=== PATIENT | male | born 1955 | race Caucasian/White ===

== ENCOUNTER 2023-05-15 20:06 | Emergency (ER) | payer MEDICARE, SELFPAY ==
[2023-05-15 20:07] VITALS: BP 163/99; PULSE 113; RESP 25; TEMP 36.6; O2SAT 97; BMI 30.2
--- NOTE | 2023-05-15 20:22 | CT_ITS ---
STUDY: CT ABDOMEN AND PELVIS WITH CONTRAST REASON FOR EXAM: Male, 67 years old. ruq pain RADIATION DOSAGE (If Supplied By Facility): CTDIvol = ( 16.88 ) mGy, DLP = ( 1122.84 ) mGycm TECHNIQUE: Transaxial images were obtained from the dome of the diaphragm to the symphysis pubis without oral contrast. IV 100mL Isovue-300 was administered. Sagittal and coronal images were reconstructed. Individualized dose optimization techniques were used for this CT. COMPARISON: None. FINDINGS: The visualized lung bases are unremarkable. The visualized portions of the heart are within normal limits. Normal liver. Normal gallbladder and extrahepatic biliary system. Normal spleen. Normal pancreas. Normal bilateral adrenal glands. Normal right kidney. Normal left kidney. There is a small hiatal hernia. Normal small intestine. There are multiple colonic diverticula consistent with diverticulosis. The appendix is visualized and appears normal. Normal abdominal aorta. Normal inferior vena cava. Normal retroperitoneum. Normal urinary bladder. There is a small umbilical hernia containing fat. Small bilateral inguinal hernias containing the right side of the bladder on the right and fat on the left. There is marked enlargement of the superior aspect of the right rectus abdominis muscle containing a 5 x 10 cm area of soft tissue attenuation consistent with an acute rectus muscle hematoma. Mild levoscoliosis of the lumbar spine with degenerative disc disease. CT/Abdomen/Pelvis W IV Cont ONLY IMPRESSION: 1. Large rectus abdominis muscle hematoma. 2. Small hiatal hernia. 3. Sigmoid diverticulosis without diverticulitis. 4. Small umbilical and bilateral inguinal hernias with incarceration of the right side of the bladder. Electronically Signed: Jak Sinclair MD at 22:05 EST ,
--- NOTE | 2023-05-15 20:24 | EDS_ITS ---
HPI <BOWEN Castelan - Last Filed: 05/15/23 20:54> History of Present Illness Chief Complaint: Abd Pain Narrative Narrative: 67-year-old male states about an hour ago he was lying on the couch when he felt a pop in the right upper quadrant of his abdomen and noticed a golf ball sized mass. The area has increased in size and he is having worsening pain. He states he did not sneeze or cough or do anything that increased the pressure in his abdomen to his knowledge. His Labrador jumped on the right side of his abdomen a couple days ago and it felt sore. He has been eating and drinking normally. Normal bladder and bowel movements. He has no known medical history but has not seen a doctor in 20 years. No abdominal surgeries. PFSH <BOWEN Castelan Last Filed: 05/15/23 20:54> PFSH Home Medications NK 05/15/23 [History Last Taken Unknown] Allergy/AdvReac Type Severity Reaction Status Date / Time amoxicillin Allergy Mild Rash Verified 05/15/23 20:09 Social History Smoking Status: Never smoker ROS <BOWEN Castelan Last Filed: 05/15/23 20:54> ROS ED ROS Narrative Constitutional: Negative for fever, chills, malaise. CVS: Negative for chest pain, syncope. Respiratory: Negative for shortness of breath, cough. GI: Positive for abdominal pain. Negative for nausea, vomiting, diarrhea, constipation, melena, hematochezia. : Negative for dysuria, hematuria or frequency. EXAM <BOWEN Castelan Last Filed: 05/15/23 20:54> Physical Exam Narrative Exam Narrative: CONST: Patient sitting in no acute distress. EYES: Normal inspection. NECK: Normal inspection. RESP: No respiratory distress, CTAB. CVS: Regular rate and rhythm, no murmur, no gallop. ABD: Right upper quadrant is firm and tender, no guarding or rebound, nondistended. No bruising or skin changes. SKIN: Color normal, no rash, warm, dry, intact. EXTREMITIES: Normal appearance, no pedal edema. NEURO: Oriented x4. PSYCH: Normal affect. Const Vital Signs: 05/15/23 20:07 05/15/23 22:26 Temperature 98 F Temperature Source Temporal Pulse Rate 113 H 82 Respiratory Rate 25 H 16 Blood Pressure 163/99 H 128/79 H Blood Pressure Mean 120 95 Pulse Ox 97 98 Oxygen Delivery Method Room Air Room Air <Dr. Bhupendra Moralez MD - Last Filed: 05/15/23 22:50> Physical Exam Const Vital Signs: 05/15/23 20:07 05/15/23 22:26 Temperature 98 F Temperature Source Temporal Pulse Rate 113 H 82 Respiratory Rate 25 H 16 Blood Pressure 163/99 H 128/79 H Blood Pressure Mean 120 95 Pulse Ox 97 98 Oxygen Delivery Method Room Air Room Air MDM <BOWEN Castelan - Last Filed: 05/15/23 20:54> MDM MDM Narrative Medical decision making narrative: History from: Patient and daughter Patient felt a pop developed pain and swelling in the right upper quadrant of his abdomen. The area feels firm but I cannot necessarily feel a hernia. He has no peritoneal signs. The rest from his abdomen is soft and nontender. Differential includes hernia versus hematoma. He was treated with IV morphine and Zofran and labs ordered. CBC is within normal limits. CMP shows glucose of 160 with normal CO2 and anion gap. CT scan is pending. Lab Data Attestation: I reviewed the patient's lab results. Labs: Laboratory Results - last 24 hr 05/15/23 20:29 WBC 10.2 RBC 4.77 Hgb 15.0 Hct 42.4 MCV 88.9 MCH 31.4 MCHC 35.4 RDW Std Deviation 38.0 RDW Coeff of Elvi 11.9 Plt Count 291 MPV 9.7 Immature Gran % (Auto) 0.600 Neut % (Auto) 65.5 Lymph % (Auto) 21.6 [place] % (Auto) 9.6 Eos % (Auto) 2.1 Baso % (Auto) 0.6 Absolute Neuts (auto) 6.7 Absolute Lymphs (auto) 2.21 Nucleated RBC % 0 Sodium 139 Potassium 4.2 Chloride 108 H Carbon Dioxide 24.0 Anion Gap 7 BUN 15 Creatinine 1.11 Estim Creat Clear Calc 67.59 Est GFR (MDRD) Af Amer 85 Est GFR (MDRD) Non-Af 70 BUN/Creatinine Ratio 13.5 Glucose 160 H Calcium 9.2 Total Bilirubin 0.30 AST 26 ALT 65 H Alkaline Phosphatase 82 Total Protein 6.8 Albumin 3.3 Globulin 3.5 Albumin/Globulin Ratio 0.9 Radiography Diagnostic Testing: Clinical Impression(s) from Imaging Studies Abdomen/Pelvis CT 05/15/23 20:22 IMPRESSION: 1. Large rectus abdominis muscle hematoma. 2. Small hiatal hernia. 3. Sigmoid diverticulosis without diverticulitis. 4. Small umbilical and bilateral inguinal hernias with incarceration of the right side of the bladder. Electronically Signed: Jak Sinclair MD at 22:05 EST Reading Location ID and State: [id number] / [employer] , Service support , <Dr. Bhupendra Moralez MD - Last Filed: 05/15/23 22:50> [facility] Lab Data Labs: Laboratory Results - last 24 hr 05/15/23 20:29 WBC 10.2 RBC 4.77 Hgb 15.0 Hct 42.4 MCV 88.9 MCH 31.4 MCHC 35.4 RDW Std Deviation 38.0 RDW Coeff of Elvi 11.9 Plt Count 291 MPV 9.7 Immature Gran % (Auto) 0.600 Neut % (Auto) 65.5 Lymph % (Auto) 21.6 [place] % (Auto) 9.6 Eos % (Auto) 2.1 Baso % (Auto) 0.6 Absolute Neuts (auto) 6.7 Absolute Lymphs (auto) 2.21 Nucleated RBC % 0 Sodium 139 Potassium 4.2 Chloride 108 H Carbon Dioxide 24.0 Anion Gap 7 BUN 15 Creatinine 1.11 Estim Creat Clear Calc 67.59 Est GFR (MDRD) Af Amer 85 Est GFR (MDRD) Non-Af 70 BUN/Creatinine Ratio 13.5 Glucose 160 H Calcium 9.2 Total Bilirubin 0.30 AST 26 ALT 65 H Alkaline Phosphatase 82 Total Protein 6.8 Albumin 3.3 Globulin 3.5 Albumin/Globulin Ratio 0.9 Radiography Diagnostic Testing: Clinical Impression(s) from Imaging Studies Abdomen/Pelvis CT 05/15/23 20:22 IMPRESSION: 1. Large rectus abdominis muscle hematoma. 2. Small hiatal hernia. 3. Sigmoid diverticulosis without diverticulitis. 4. Small umbilical and bilateral inguinal hernias with incarceration of the right side of the bladder. Electronically Signed: Jak Sinclair MD at 22:05 EST Reading Location ID and State: [id number] / [employer] , Service support , Management Discussion w/another healthcare provider: System Software Programmer (Shana Saldivar) Treatment and Re-Evaluation Comments:: I have personally performed a face to face assessment of the patient and have reviewed the JILLIAN Note. I performed a substantive portion of the visit including all aspects of the following. My reynolsd findings include: History is minor injury from his lab jumping hard on his abdominal wall 3 to 4 days ago. Today he felt a sudden pinch followed by a swelling in his right upper quadrant, and increased pain and increased swelling with movements such as sitting up and using his abdominal musculature. Exam is tender, firm, swollen right upper quadrant Medical Decison Making likely rectus sheath hematoma. Will obtain labs and CT. Patient not anticoagulated or on any antiplatelets. I reviewed the CT images and the report I do confirm that it shows a rectus sheath hematoma. He is not anemic from blood loss. Also discussed about incidental findings of diverticulosis and right inguinal hernia with part of the bladder and it. The radiologist used the word incarceration here. The patient is asymptomatic from it and has never felt a bulge in his right groin or known that he had a hernia there. I discussed with surgery who states no emergent management is indicated, he can follow-up with him and have further evaluation as an outpatient routinely. Reassured given instructions for supportive care including ice and avoiding heat for now. Given surgery to follow-up with. Other additions or changes: [None] Discharge Plan Triage Chief Complaint: Abd Pain ED Midlevel Provider: Nano Esparza ED Provider: Bhupendra Moralez Dx/Rx/DC Orders Clinical Impression: Rectus sheath hematoma, Right inguinal hernia Instructions: Hernia Repair Surgery, ED Hematoma Prescriptions: No Action NK Primary Care Provider: Care Physician,No Primary Referrals: Jluis Saldivar MD [Med Staff - Active Staff] - Town Doctor,Out of [Non-Staff] - Activity Restrictions/Additional Instructions: Apply ice to the affected area 2-3 times daily at least, for 15 or 20 minutes at a time. Limit how much you are using your abdominal musculature, avoid exercise such as sit ups or heavy lifting as this could exacerbate the problem. After 4 or 5 days as long as everything is stable and not getting bigger, you may then try applying heat in order to hasten resorption of clotted blood in the area but do not apply excessive amounts of fluids. Disposition Disposition: Home, Self Care
[2023-05-15] MEDS: Morphine 4 MG/ML Syringe IV (20:33)
[2023-05-15] MEDS: Ondansetron 4 MG/2 ML Vial IV (20:33)
[2023-05-15 20:35] LABS: Absolute Lymphocyte Count 2.21 X10^3/uL (0.83-4.51); Absolute Neutrophil Count 6.7 X10^3/uL (2.0-7.7); Basophil# 0.06 X10^3/uL; Basophil% 0.6 % (0-1); Eosinophil# 0.21 X10^3/uL; Eosinophils% 2.1 % (0-5); Hematocrit 42.4 % (40-54); Lymphocyte # 2.21 X10^3/ul (0.83-4.51); Lymphocyte % 21.6 % (19-41); Mean Corp Hgb Conc 35.4 g/dL (32-36); Mean Corpuscular Hgb 31.4 pg (27.0-32.0); Mean Corpuscular Volume 88.9 fL (80-94); Mean Platelet Vol. 9.7 fl (6.2-12.0); Monocyte# 0.98 X10^3/uL; Monocyte% 9.6 % (0-10); NRBC Flagged by Analyzer 0 % (0-5); Neutrophil # 6.71 X10^3/uL (2.7-7.7); Neutrophil % 65.5 % (47-70); Platelet Count 291 K/mm3 (150-450); RBC Distribution Width CV 11.9 % (11.6-14.6); Red Blood Count 4.77 M/mm3 (4.6-6.2); White Blood Count 10.2 K/mm3 (4.4-11.0)
[2023-05-15 20:52] LABS: ALB/GLOB Ratio 0.9 RATIO (0.9-2.4); AST(SGOT) 26 U/L (15-37); Alanine Aminotransfer ALT/SGPT 65 U/L (16-61); Albumin, Serum 3.3 g/dL (3.2-5.0); Alkaline Phosphatase 82 U/L (45-117); Anion Gap 7 (5-15); BUN 15 mg/dL (7-18); BUN/Creat Ratio 13.5 RATIO (10-20); Calcium,Total 9.2 mg/dL (8.5-10.1); Chloride 108 mmol/L (98-107); Creatinine, Serum 1.11 mg/dL (0.70-1.30); EST Glomerular Filtration Rate 70 mL/min (>60); Est Glom Filt Rate - Afr Amer 85 mL/min (>60); Estimated Creatinine Clearance 67.59 ml/min; Globulin 3.5 g/dL (2.2-4.2); Glucose 160 mg/dL (74-106); Potassium 4.2 mmol/L (3.5-5.1); Protein, Total 6.8 g/dL (6.4-8.2); Sodium Level 139 mmol/L (136-145)
[2023-05-15 22:26] VITALS: BP 128/79; PULSE 82; RESP 16; O2SAT 98
[2023-05-15 22:54] VITALS: BP 129/68; PULSE 76; RESP 15; O2SAT 97
== END 2023-05-15 22:55 | disposition home or self-care (01) ==
PROVIDERS: Physician Assistant; Emergency Provider Emergency Medicine; Visit Provider Emergency Medicine
DX: M79.81 Nontraumatic hematoma of soft tissue (principal); K44.9 Diaphragmatic hernia without obstruction or gangrene; K57.30 Diverticulosis of large intestine without perforation or abscess without bleeding; K42.9 Umbilical hernia without obstruction or gangrene; K40.00 Bilateral inguinal hernia, with obstruction, without gangrene, not specified as recurrent
CPT/HCPCS: 74177; 80053; 85025; 96374; 96375; 99283; Q9967; A4216; J2405